=== PATIENT | female | born 1955 | race Caucasian/White ===

== ENCOUNTER → 2017-05-05 | Outpatient (CLI) | payer BC ==
[~2017-05-05] MED LIST: ASPI-266 PO; EST45C VG; MELO7.5T PO; SCR1T1 PO
--- NOTE | 2017-05-08 22:27 | Diagnostic Imaging Report ---
Bilateral screening mammogram 2D views with tomosynthesis The current study was also evaluated with a Computer Aided Detection (CAD) system. Indication: Screening. No current complaints stated on the questionnaire. COMPARISON: 05/03/2016. FINDINGS: The breasts are composed of heterogeneously dense parenchyma which may decrease mammographic sensitivity. There is no mass, architectural distortion or suspicious cluster of calcifications. Allowing for technique and positional differences, no suspicious change is seen. IMPRESSION: Dense breasts with no definite change. ACR BI-RADS Category 2: Benign findings. Result letter will be mailed to the patient. Note: At least 10% of breast cancer is not imaged by mammography. Dictated by: Dictated on workstation # [id number]
== END ==
LOC: RAD 09:37
PROVIDERS: ATTEND Family Medicine
DX: Z12.31 Encounter for screening mammogram for malignant neoplasm of breast (principal)
CPT/HCPCS: 77067

== ENCOUNTER → 2017-05-17 | Outpatient (CLI) | payer BC ==
--- NOTE | 2017-05-17 21:29 | HISTORY AND PHYSICAL ---
DATE OF SERVICE: DATE OF ADMISSION: 05/19/2017 COLONOSCOPY HISTORY AND PHYSICIAN HISTORY OF PRESENT ILLNESS: The patient is a 62-year-old white female referred by Dr. Reese for surveillance colonoscopy. She last underwent colonoscopy a little over three years ago, at which time two adenomatous polyps were removed, one from the distal transverse colon and one from the proximal descending colon. She is deemed to be higher than average risk as her father was diagnosed with colon cancer at the age of 65, ultimately of pancreatic cancer at the age of 79. The patient reports that she has felt well. She denies bowel habit changes noted, no bright red blood per rectum, melena or abdominal pain. She states that her weight has been stable. MEDICATIONS ON ADMISSION: Include Restasis 1 drop both eyes b.i.d., meclizine 25 mg q.8 p.r.n. vertigo, Premarin vaginal cream three times weekly. PAST MEDICAL HISTORY: Otherwise noncontributory. PAST SURGICAL HISTORY: She underwent hysterectomy for uterine fibroids many years ago, reported no other significant surgeries. FAMILY HISTORY: As noted in the HPI. There is no family history for liver disease or known hemochromatosis. REVIEW OF SYSTEMS: CONSTITUTIONAL: The patient denies night sweats, chills, fever, fatigue or weight change. CARDIOVASCULAR: There is no reported history of chest pain, pressure, shortness of breath, orthopnea, PND or pedal edema. RESPIRATORY: The patient denies chest congestion, chest discomfort, cough or shortness of breath. GASTROINTESTINAL: As noted in the HPI. GENITOURINARY: The patient denies dysuria, increased urinary frequency or change in urine volume. She also denies hematuria. PHYSICAL EXAMINATION: GENERAL: Reveals a well-appearing white female, in no acute distress. VITAL SIGNS: Blood pressure 110/72, heart rate 72 and regular. Weight at 170.6 pounds, was down 3 pounds from her last office weight in 2008. HEENT: Head, atraumatic and normocephalic. Mallampati class II oropharyngeal configuration. Oral cavity is clear. NECK: Reveals no JVD, adenopathy or bruits. CHEST: Clear. CARDIOVASCULAR: Reveals a regular rate and rhythm without murmur, S3 or S4. ABDOMEN: Soft, supple without mass, organomegaly or tenderness. EXTREMITIES: Reveal no cyanosis, clubbing or edema. ASSESSMENT: 1. The patient was set up for surveillance colonoscopy on 05/19/2017. Prep instructions with a Suprep Kit were given and questions were answered. 2. Elevated isolated ALT with presumed insulin resistance with fasting sugar of 126. Questions about blood tests were answered. Discussed the need for repeat liver function monitoring with nonalcoholic fatty liver disease the most likely cause of isolated ALT in an individual with no risk factors or history of hepatitis. Advised cutting back on carbohydrates with a goal of 5 to 10 pound weight loss over the next 6 months and repeat LFTs. Thank you for the referral of this pleasant lady. Job ID: [id number] DocumentID: [id number] Dictated Date: 05/17/2017 19:57:34 Payable Manager Date: 05/17/2017 20:56:03 Dictated By: HOWIE NJ MD MTDD
== END ==
LOC: PREOP 14:37
PROVIDERS: ATTEND Internal Medicine
DX: Z01.818 Encounter for other preprocedural examination (principal); Z12.11 Encounter for screening for malignant neoplasm of colon

== ENCOUNTER 2017-05-19 07:28 | Day surgery (SDC) | payer BC ==
[~2017-05-19] VITALS: Ht 167.6 cm; Wt 77.1 kg
[2017-05-19 07:40] VITALS: BP 129/86
[2017-05-19] MEDS ORDERED: 1/2 NS IV SOLUTION 0 ML IV ONE (07:42)
[2017-05-19] MEDS ORDERED: 1/2 NS IV SOLUTION 1,000 ML IV STA (07:48)
--- NOTE | 2017-05-19 07:49 | Pre-Op Note & Conscious Sedat ---
Pre-Operative Progress Note H&P Reviewed The H&P was reviewed, patient examined and no changes noted. Date H&P Reviewed: May 19, 2017 Time H&P Reviewed: 07:48 Conscious Sedation Pre-Proced ASA Class: 1 Airway Mallampati Classification: (inupiat appropriate class) I. II. III, IV Lungs Heart ASA score ASA 1: a normal healthy patient ASA 2: a patient with a mild systemic disease (mid diabetes, controlled hypertension, obesity ASA 3: a patient with a severe systemic disease that limits activity (angina , COPD, prior Myocardial infarction) ASA 4: a patient with an incapacitating disease that is a constant threat to life (CHF, renal failure) ASA 5: a moribund patient not expected to survive 24 hrs. (ruptured aneurysm) ASA 6: a declared brain patient whose organs are being harvested. For emergent operations, add the letter E after the classification Grade 2 Sedation Plan: Analgesia, Amnesia, Plan communicated to team members, Discussed options with patient/fam, Discussed risks with patient/fam Note The patient is an appropriate candidate to undergo the planned procedure, sedation, and anesthesia. The patient immediately re-assessed prior to indication. HOWIE NJ MD May 19, 2017 07:49
[2017-05-19] MEDS ORDERED: LIDOCAINE JELLY 2% (XYLOCAINE) 5 ML TUBE MM PRN (08:00)
[2017-05-19] MEDS: fentaNYL INJECTION 100 MCG/2 ML AMP IVP PRN ×2 (08:27→08:30)
[2017-05-19] MEDS ORDERED: LIDOCAINE JELLY 2% (XYLOCAINE) 5 ML TUBE ONE (08:28)
[2017-05-19] MEDS: MIDAZOLAM 2 MG/2 ML (VERSED) VIAL IVP PRN ×2 (08:28→08:31)
[2017-05-19] MEDS ORDERED: fentaNYL INJECTION 100 MCG/2 ML AMP ONE (08:28)
[2017-05-19] MEDS ORDERED: MIDAZOLAM 2 MG/2 ML (VERSED) VIAL ONE ×2 (08:28)
[2017-05-19] MEDS ORDERED: 1/2 NS IV SOLUTION 1,000 ML IV ONE (08:53)
[2017-05-19 09:05] VITALS: BP 109/73
[2017-05-19 09:35] VITALS: BP 112/78
[2017-05-19 09:55] VITALS: BP 112/78
--- NOTE | 2017-05-19 14:54 | OPERATIVE REPORT ---
DATE OF SERVICE: COLONOSCOPY SUMMARY Screening my colonoscopy higher than average risk due to family history for colon cancer in first degree relative. The patient was placed in the left lateral decubitus position. Prior to undergoing colonoscopy, digital rectal evaluation was performed. Anal sphincter tone was normal and the perianal reflexes intact. Digital inspection was compatible with an anterior rectocele. There was no evidence for stool pocketing. No other abnormalities, no additional inspection of anal canal or distal rectal vault. The colonoscope was then inserted into the rectum under direct visualization advanced to the cecum. The cecum was identified by identification of the ileocecal valve and cecal strap. Photographic documentation was obtained. Careful inspection was made as the colonoscope was withdrawn. The patient tolerated procedure well. FINDINGS: There was no evidence for internal or external hemorrhoids. Present in the proximal rectum was a diminutive hyperplastic appearing polyp. It was photographed, biopsied, ablated and submitted for histopathology with no blood loss being noted. The remainder of the rectum was unremarkable. The sigmoid colon, descending colon, splenic flexure, transverse colon, hepatic flexure, ascending colon and cecum were unremarkable with no other evidence for neoplasia. ASSESSMENT AND PLAN: Diminutive hyperplastic appearing polyp was removed from the proximal rectum. As long as there are no surprises on histopathology report, would advocate repeat screening colonoscopy in 5 years considering family history. With the Hawk-prep, she did vomit up the first portion of it. We had to call in metoclopramide and she was able to tolerate the second dose. In addition, she had not chilled the solution. For future doses we will recommend metoclopramide 10 mg an hour prior to dosing and remind to chill solution. Sincerely, Job ID: [id number] DocumentID: [id number] Dictated Date: 05/19/2017 09:31:56 Woven Label Designer Date: 05/19/2017 14:53:29 Dictated By: HOWIE NJ MD [facility]
== END 2017-05-19 09:55 | disposition home or self-care (01) ==
LOC: ENDO 07:28
PROVIDERS: ATTEND Internal Medicine
DX: Z12.11 Encounter for screening for malignant neoplasm of colon (principal); K62.1 Rectal polyp; Z80.0 Family history of malignant neoplasm of digestive organs